=== PATIENT | female | born 1950 | race African-American/Black ===

== ENCOUNTER 2021-08-27 07:42 | Emergency (ER) | payer MEDICARE ==
[2021-08-27 17:14] LABS: SARS-CoV-2 PCR by NAA Not Detected (NotDetected)
== END 2021-08-27 09:15 | disposition home or self-care (01) ==
LOC: CSHERS 07:42
DX: J22 Unspecified acute lower respiratory infection (principal); R11.0 Nausea; R04.0 Epistaxis; I10 Essential (primary) hypertension; Z20.822 Contact with and (suspected) exposure to COVID-19; Z87.19 Personal history of other diseases of the digestive system
CPT/HCPCS: 71045; U0003; U0005